=== PATIENT | female | born 1995 | race Two or more races ===

== ENCOUNTER 2022-05-11 10:57 | Emergency (ER) | payer MEDICAID, OTHER ==
[~2022-05-11] VITALS: Ht 162.6 cm; Wt 80.0 kg
[2022-05-11 12:52] VITALS: BP 121/67
[2022-05-11 13:28] LABS: Basophils # (auto) 0.1 10 ^3/uL (0-0.2); Basophils % (auto) 0.8 % (0.0-2.0); Eosinophils # (auto) 0.2 10 ^3/uL (0-0.8); Eosinophils % (auto) 1.7 % (0.0-7.0); Hematocrit 39.8 % (36.0-46.0); Lymphocytes # (auto) 3.2 10 ^3/uL (0.4-5.4); Lymphocytes % (auto) 31.3 % (10.0-50.0); Mean Corpuscular Hemoglobin 29.9 pg (28.0-32.0); Mean Corpuscular Hgb Conc. 32.8 g/dL (32.0-36.0); Mean Corpuscular Volume 91.2 fL (80.0-100.0); Monocytes # (auto) 0.5 10 ^3/uL (0-1.3); Monocytes % (auto) 5.2 % (0.0-12.0); Neutrophils # (auto) 6.2 10 ^3/uL (1.6-8.6); Red Blood Cells 4.37 10^6/uL (4.0-5.20); Red Cell Distribution Width 13.2 % (11.8-14.3); White Blood Cell 10.2 10^3/uL (4.4-10.8)
[2022-05-11 13:44] LABS: Calcium 8.6 mg/dL (8.5-10.1); Potassium 3.9 mmol/L (3.5-5.1)
[2022-05-11 13:48] LABS: BUN/Creatinine Ratio 11.1; Bilirubin, Total 0.4 mg/dL (0.2-1.0); Total Protein 7.4 g/dL (6.4-8.2)
== END 2022-05-11 21:00 | disposition home or self-care (01) ==
LOC: EDBD 10:57 → ER 10:57
DX: R45.851 Suicidal ideations (principal)
CPT/HCPCS: 36415; 80053; 84443; 85025

== ENCOUNTER 2023-08-29 09:20 | Emergency (ER) | payer MEDICAID ==
[~2023-08-29] VITALS: Ht 162.6 cm; Wt 84.1 kg
[2023-08-29 10:55] VITALS: BP 102/56; PULSE 77; RESP 16; TEMP 97.6; O2SAT 98
== END 2023-08-29 11:48 | disposition home or self-care (01) ==
LOC: ER 09:20
DX: S01.01XD Laceration without foreign body of scalp, subsequent encounter (principal); X58.XXXD Exposure to other specified factors, subsequent encounter